=== PATIENT | female | born 1990 | race Caucasian/White ===

== ENCOUNTER → 2021-06-03 | Outpatient (CLI) | payer BC ==
--- NOTE | 2021-06-03 08:35 | USB ---
EXAMINATION TYPE: US breast limited RT DATE OF EXAM: 06/03/2021 COMPARISON: Mammogram same date CLINICAL HISTORY: N63 Breast Lump. Findings: The right breast was scanned with ultrasound from 3:00 to 6:00. There is a simple cyst in the right b reast at 4:00 measuring up to 0.4 x 0.2 x 0.3 cm. IMPRESSION: No definite sonographic correlate for the palpable abnormality. Stereotactic biopsy is recommended fo r the grouping of calcifications in the right lower inner breast. BI-RADS 4. Suspicious.
--- NOTE | 2021-06-03 14:39 | MM ---
Reason for exam: clinical finding. Baseline mammogram. History: Patient is nulliparous. Took hormonal contraceptives for 9 years beginning at age 21. Indicated problem(s): lump or thickening and pain in the right breast. Physical Findings: Nurse Summary: 1cm nodule in the right breast at 4 o'clock (nurse theron). MG Diagnostic Mammo w CAD CRISTOFER Bilateral CC and MLO view(s) were taken. XCCL, CC with magnification, and MLO with magnification view(s) were taken of the right breast. The breast tissue is heterogeneously dense. This may lower the sensitivity of mammography. There is a 4.9 x 3.5 x 1.2cm grouping of punctate calcifications in the right breast in the lower inner breast at the site of palpable. These results were verbally communicated with the patient and result sheet given to the patient on 06/03/21. ASSESSMENT: Incomplete: need additional imaging evaluation, BI-RAD 0 RECOMMENDATION: Ultrasound of the right breast.
== END | disposition home or self-care (01) ==
LOC: RADMAMWWP 07:09
PROVIDERS: ATTEND Obstetrics & Gynecology
DX: N60.01 Solitary cyst of right breast (principal); R92.1 Mammographic calcification found on diagnostic imaging of breast
CPT/HCPCS: 77066

== ENCOUNTER → 2021-06-27 | Day surgery (SDC) | payer BC ==
[2021-06-27 09:32] VITALS: BP 137/84; PULSE 74; RESP 16; TEMP 97
--- NOTE | 2021-06-27 11:23 | MM ---
Stereotactic Mammotome core biopsy right breast. HISTORY: microcalcifications The microcalcifications in question within the right breast were targeted by the undersigned. Procedure was performed by the undersigned. Informed consent was obtained and all of the patients questions were answered. The standard sterile technique was utilized and appropriate local anesthesia was obtained with 1% licocaine. Mammotome probe was advanced and multiple core samples were obtained and sent to pathology for interpretation. Microclip marker was deployed at the site of biopsy. Post procedural mammogram demonstrates appropriate deployment of radiopaque clip marker. The patient tolerated the procedure well and left the department in stable condition. Pathology results are pending. IMPRESSION: Successful stereotactic core biopsy right breast with pathology results pending. Pathology Results: Benign RIGHT BREAST, STEREOTACTIC CORE BIOPSY: Fibrocystic changes including cysts, fibrosis, apocrine metaplasia, calcifications and calcium oxalate crystals with foreign body reaction. Recommendation Follow up mammogram of the right breast in months. GUS
== END ==
LOC: RADMAMWWP 09:16
PROVIDERS: ATTEND Student in an Organized Health Care Education/Training Program
DX: N60.11 Diffuse cystic mastopathy of right breast (principal); N60.81 Other benign mammary dysplasias of right breast; R92.1 Mammographic calcification found on diagnostic imaging of breast; Z88.6 Allergy status to analgesic agent; Z88.5 Allergy status to narcotic agent
CPT/HCPCS: 88305; 19081; A4648; J2001

== ENCOUNTER → 2022-01-27 | Outpatient (CLI) | payer BC ==
--- NOTE | 2022-01-27 10:07 | MM ---
Reason for Exam: Follow-up at short interval from prior study. Last screening mammogram was performed 8 month(s) ago. Patient History: Menarche at age 10. Patient has no children. Hormonal Contraceptives for 9 years from age 21 until age 30. 06/27/2021, Benign Core Biopsy on the right side. Prior Study Comparison: 06/03/2021 Bilateral Diagnostic Mammogram, [facility]. Tissue Density: Right: The breast tissue is heterogeneously dense. This may lower the sensitivity of mammography. Findings: Analyzed By CAD. New biopsy clip in breasts lower inner aspect. Persistent scattered benign-appearing punctate calcifications throughout the right breast. Overall Assessment: Benign, BI-RAD 2 Management: Screening Mammogram of both breasts at age 38. Return to routine follow-up. Results were given to the patient verbally at the time of exam. Electronically signed and approved by: David Aviles M.D.
== END | disposition home or self-care (01) ==
LOC: RADMAMWWP 09:42
PROVIDERS: ATTEND Student in an Organized Health Care Education/Training Program
DX: R92.1 Mammographic calcification found on diagnostic imaging of breast (principal)
CPT/HCPCS: 77065